=== PATIENT | female | born 1965 | race African-American/Black ===

== ENCOUNTER 2018-05-02 21:24 | Inpatient (IN) | payer OTHER ==
[2018-05-02] MEDS ORDERED: ACETAMINOPHEN 325 MG TAB PO (22:30)
[2018-05-02] MEDS ORDERED: NACL 0.9% 3 ML SYG IV (22:30)
[2018-05-02] MEDS ORDERED: ONDANSETRON 4 MG INJ IV (22:30)
[2018-05-02] MEDS: LEVETIRACETAM (100 MG/ML) 5ML CUP PO (22:30)
[2018-05-03] MEDS ORDERED: DIPHENHYDRAMINE 25 MG CAP PO
[2018-05-03] MEDS ORDERED: GUAIFENESIN 20 MG/ML 5ML CUP PO
[2018-05-03] MEDS: ALBUTEROL/IPRATROPIUM (NEB) 3 ML AMP HHN ×3 (00:09→21:30)
[2018-05-03] MEDS: morphine 2 MG INJ IV ×4 (00:31→22:15)
[2018-05-03] MEDS: HYDROCODONE/APAP (5/325) TAB NGT ×3 (01:34→09:49)
[2018-05-03] MEDS: PHENYTOIN 100 MG CAP PO ×3 (05:36→21:50)
[2018-05-03 06:59] LABS: ADD MAN DIFF? NO
[2018-05-03 07:06] LABS: WHITE BLOOD COUNT 22.7 10^3/ul (4.8-10.8)
[2018-05-03 07:06] LABS: BASOPHILS % 0.1 % (0.0-2.0); HEMATOCRIT 29.3 % (37.0-47.0); LYMPHOCYTES # 2.2 10^3/ul (0.8-2.9); LYMPHOCYTES % 9.9 % (15.0-51.0); MEAN CORPUSCULAR HEMOGLOBIN 23.6 pg (29.0-33.0); MEAN CORPUSCULAR HGB CONC 30.7 g/dl (32.0-37.0); MEAN CORPUSCULAR VOLUME 76.9 fl (82.0-101.0); MEAN PLATELET VOLUME 10.6 fl (7.4-10.4); MONOCYTE # 1.3 10^3/ul (0.3-0.9); MONOCYTES % 5.7 % (0.0-11.0); NEUTROPHILS % 83.8 % (39.0-77.0); PLATELET COUNT 424 10^3/UL (140-415); RED BLOOD COUNT 3.81 10^6/ul (4.20-5.40); RED CELL DISTRIBUTION WIDTH 20.9 % (11.5-14.5)
[2018-05-03 07:41] LABS: PHENYTOIN (DILANTIN) 5.5 ug/ml (10.0-20.0)
[2018-05-03 07:41] LABS: ALANINE AMINOTRANSFERASE 12 IU/L (13-69); ALBUMIN 3.3 g/dl (3.3-4.9); ALKALINE PHOSPHATASE 91 IU/L (42-121); ANION GAP 6 (5-13); ASPARTATE AMINO TRANSFERASE 14 IU/L (15-46); BILIRUBIN,INDIRECT 0.2 mg/dl (0-1.1); BILIRUBIN,TOTAL 0.2 mg/dl (0.2-1.3); BLOOD UREA NITROGEN 13 mg/dl (7-20); CALCIUM 8.8 mg/dl (8.4-10.2); CARBON DIOXIDE 25 mmol/L (21-31); CHLORIDE 109 mmol/L (97-110); CREATININE 0.67 mg/dl (0.44-1.00); Estimated GFR > 60 mL/min (>60); GLUCOSE 106 mg/dl (70-220); MAGNESIUM 2.2 mg/dl (1.7-2.5); PHOSPHORUS 3.2 mg/dl (2.5-4.9); POTASSIUM 3.8 mmol/L (3.5-5.1); SODIUM 140 mmol/L (135-144); TOTAL PROTEIN 6.3 g/dl (6.1-8.1)
[2018-05-03] MEDS: GUAIFENESIN/CODEINE 5ML CUP PO ×2 (07:48→19:59)
[2018-05-03] MEDS: ENOXAPARIN 40 MG/0.4 ML SYG SC (08:29)
[2018-05-03] MEDS: LEVETIRACETAM (100 MG/ML) 5ML CUP PO ×2 (08:29→21:50)
[2018-05-03] MEDS: LEVOFLOXACIN 500MG/D5W (PMX) 100 ML IVPB (08:29)
[2018-05-03] MEDS: predniSONE 20 MG TAB PO (11:40)
[2018-05-04] MEDS: morphine 2 MG INJ IV ×3 (02:20→11:42)
[2018-05-04] MEDS: PHENYTOIN 100 MG CAP PO (06:31)
[2018-05-04 07:20] LABS: ADD MAN DIFF? NO
[2018-05-04 07:29] LABS: BASOPHILS % 0.1 % (0.0-2.0); EOSINOPHILS # 0.1 10^3/ul (0.0-0.5); EOSINOPHILS % 0.5 % (0.0-7.0); HEMATOCRIT 33.1 % (37.0-47.0); LYMPHOCYTES # 3.8 10^3/ul (0.8-2.9); LYMPHOCYTES % 32.1 % (15.0-51.0); MEAN CORPUSCULAR HEMOGLOBIN 23.1 pg (29.0-33.0); MEAN CORPUSCULAR HGB CONC 30.2 g/dl (32.0-37.0); MEAN CORPUSCULAR VOLUME 76.6 fl (82.0-101.0); MEAN PLATELET VOLUME 10.7 fl (7.4-10.4); MONOCYTE # 1.2 10^3/ul (0.3-0.9); MONOCYTES % 10.5 % (0.0-11.0); NEUTROPHIL # 6.6 10^3/ul (1.6-7.5); NEUTROPHILS % 56.4 % (39.0-77.0); PLATELET COUNT 492 10^3/UL (140-415); RED BLOOD COUNT 4.32 10^6/ul (4.20-5.40); RED CELL DISTRIBUTION WIDTH 20.9 % (11.5-14.5)
[2018-05-04 07:29] LABS: WHITE BLOOD COUNT 11.8 10^3/ul (4.8-10.8)
[2018-05-04 07:41] LABS: ANION GAP 7 (5-13); BLOOD UREA NITROGEN 8 mg/dl (7-20); CALCIUM 8.8 mg/dl (8.4-10.2); CARBON DIOXIDE 25 mmol/L (21-31); CHLORIDE 108 mmol/L (97-110); CREATININE 0.59 mg/dl (0.44-1.00); Estimated GFR > 60 mL/min (>60); GLUCOSE 85 mg/dl (70-220); POTASSIUM 3.5 mmol/L (3.5-5.1); SODIUM 140 mmol/L (135-144)
[2018-05-04 07:44] LABS: IRON 18 ug/dl (35-150)
[2018-05-04 07:54] LABS: % IRON SATURATION 5 % SAT (22-52); TOTAL IRON BINDING CAPACITY 394 ug/dl (241-421)
[2018-05-04] MEDS: LEVOFLOXACIN 500MG/D5W (PMX) 100 ML IVPB (08:19)
[2018-05-04] MEDS: ENOXAPARIN 40 MG/0.4 ML SYG SC (08:20)
[2018-05-04] MEDS: LEVETIRACETAM (100 MG/ML) 5ML CUP PO (08:21)
[2018-05-04] MEDS: predniSONE 20 MG TAB PO (08:21)
[2018-05-04] MEDS: GUAIFENESIN/CODEINE 5ML CUP PO (08:34)
[2018-05-04] MEDS: SOD FERRIC GLUC COMPLX 125 MG in SOD CHLORIDE 0.9% 100 ML IVPB (10:21)
== END 2018-05-04 13:32 | disposition home or self-care (01) | DRG 191 ==
LOC: PP2 21:24
DX: J44.1 Chronic obstructive pulmonary disease with (acute) exacerbation (principal); J45.901 Unspecified asthma with (acute) exacerbation; J44.0 Chronic obstructive pulmonary disease with (acute) lower respiratory infection; G40.909 Epilepsy, unspecified, not intractable, without status epilepticus; J20.9 Acute bronchitis, unspecified; F17.210 Nicotine dependence, cigarettes, uncomplicated; D50.9 Iron deficiency anemia, unspecified; I10 Essential (primary) hypertension; Y95 Nosocomial condition; Z87.11 Personal history of peptic ulcer disease
CPT/HCPCS: 71045; 80048; 80053; 80185; 83540; 83735; 84100; 85025; 87081; 94640; 94664